=== PATIENT | female | born 1990 | race Caucasian/White ===

== ENCOUNTER 2018-12-16 13:44 | Outpatient (CLI) | payer MEDICAID ==
[2018-12-16 16:29] VITALS: BP 119/65
--- NOTE | 2018-12-16 16:43 | Ultrasound Report ---
PROCEDURE: US OB BPP WO NON-STRESS TECHNIQUE: Limited pelvic ultrasound for BPP HISTORY: well being COMPARISONS: None FINDINGS: LMP 03/11/2018 clinical Age : 40W 0 D LMP EDC 12/16/2018 Biophysical profile scoring [2]movement [2]tone [2]breathing [2]fluid 8/8 overall score Cardiac motion: 158 BPM using M-mode doppler Amniotic Fluid Volume: Adequate IMPRESSION: Single viable at 40 weeks 0 days with 8/8 biophysical profile score This document is electronically signed by Lesly Thompson MD., December 16 2018 04:40:45 PM ET
--- NOTE | 2018-12-16 17:21 | Ultrasound Report ---
PROCEDURE: US OB LIMITED TECHNIQUE: Limited ultrasound for well-being HISTORY: well being COMPARISONS: None FINDINGS: LMP 03/11/2018 Clinical Age: 40 W 0 D LMP EDC 12/16/2018 Presentation: Cephalic Activity: Monitored Cardiac motion: 158 BPM using M-mode doppler Amniotic Fluid Volume: Adequate JESSE: 11.8 cm (normal) IMPRESSION: Single intrauterine viable with an approximate age of 40 weeks 0 days. This document is electronically signed by Lesly Thompson MD., December 16 2018 05:18:16 PM ET
== END 2018-12-16 16:50 | disposition home or self-care (01) ==
LOC: TRG 13:44
PROVIDERS: ATTEND Obstetrics & Gynecology
DX: O47.1 False labor at or after 37 completed weeks of gestation (principal); Z3A.40 40 weeks gestation of pregnancy
CPT/HCPCS: 76815; 76819